=== PATIENT | male | born 1975 ===

== ENCOUNTER 2016-08-08 13:21 | Emergency (ER) | payer OTHER ==
--- NOTE | 2016-08-08 14:51 | EDDOCDS ---
Nurse's Notes [facility] Name: Amador Dick Age: 40 yrs Sex: Male : 1975 Arrival Date: 08/08/2016 Time: 13:21 Bed I9 Private MD: NO PRIMARY PHYSICIAN, . Diagnosis: Malaise and fatigue;Contact urticaria Presentation: 08/08 13:30 Presenting complaint: Patient states: dental abscess/L upper abdominal rash for a week. rs3 rash getting worse raised, itchy and painful. shivering and malaise last night. Onset: The symptoms/episode began/occurred gradually. This patient has not experienced a previous allergic reaction. Anaphylaxis evaluation, the patient reports or I have noted the following symptoms which indicate a significant risk of anaphylaxis: no signs or symptoms of anaphylaxis were noted. Adult Sepsis Screening: The patient does not have new or worsening altered mentation. Patient's respiratory rate is less than 22. Systolic blood pressure is greater than 100. Patient has a qSOFA score of 0- Negative Sepsis Screen. Suicide/Homicide risk assessment- the patient denies having any suicidal and/or homicidal ideations and does not present with any other emotional, behavioral or mental health complaints. Status: Patient is not a job service specialist or dependent. Transition of care: patient was not received from another setting of care. 13:30 Acuity: LILO Level 4 rs3 13:30 Method Of Arrival: Walkin/Carried/Asstd rs3 Triage Assessment: 13:34 General: Appears in no apparent distress. Pain: Location: left upper quadrant. Pt rs3 Declines HIV testing. Respiratory: Reports no respiratory complaints. Historical: - Allergies: PENICILLINS (Hives); - Home Meds: 1. none - PMHx: none; - PSHx: none; - Social history: Smoking status: Patient uses tobacco products, heavy tobacco smoker. No barriers to communication noted. - Family history: Not pertinent. - : The pt / caregiver states he / she is not on anticoagulants. Home medication list is obtained from the patient. - Exposure Risk Screening:: None identified. Screenin:03 Screening information is obtained from the patient. Fall risk: No risks identified. jjr Assistance ADL's: requires no assistance with activities of daily living. Abuse/DV Screen: The patient / caregiver reports he/she is: not in a situation that causes fear, pain or injury. Nutritional screening: No deficits noted. Advance Directives: There is no active DNR order. home support is adequate. Assessment: 14:02 General: Appears in no apparent distress, reports rash to upper abdomen for past week jjr now with more red circular spots, rash towards epigastric region with scabs, pt reports itching and numbness to region, also concerned about chills last night. Respiratory: Airway is patent Respiratory effort is even, unlabored, Respiratory pattern is regular, Breath sounds are clear bilaterally. Vital Signs: 13:23 BP 144 / 84; Pulse 89; Resp 18 S; Temp 97.9(O); Pulse Ox 96% on R/A; Weight 79.38 kg dd6 (R); Height 5 ft. 8 in. (172.72 cm) (R); 14:44 BP 137 / 77; Pulse 59; Resp 16; Temp 97.8; Pulse Ox 96% ; Pain 0/10; jlf 13:23 Body Mass Index 26.61 (79.38 kg, 172.72 cm) dd6 Vitals: 13:23 Log In Time: August 08, 2016 at 13:21. dd6 ED Course: 13:22 Patient visited by Dewayne Ambrosio PCA. dd6 13:22 Patient moved to Waiting dd6 13:23 NO PRIMARY PHYSICIAN, . is Private Physician. dd6 13:25 Patient moved to Pre RCE dd6 13:33 Triage Initiated rs3 13:57 Patient moved to I9 / 22 jjr 14:03 Patient visited by Elif Calderon RN. jjr 14:03 The patient / caregiver is instructed regarding the plan of care and ED course. jjr 14:19 [facility]. ke 14:19 Patient visited by Sony Winslow FNP. ke 14:19 Patient visited by Sony Winslow FNP. ke 14:34 [facility] is Referral Physician. ke 14:44 Patient visited by Jamila Humphries PCA. jlf 14:49 No IV's were initiated during this patient's visit. No procedures done that require dls assistance. Order Results: There are currently no results for this order. Outcome: 14:36 Discharge ordered by Provider. ke 14:48 Discharge Assessment: Patient awake, alert and oriented x 3. No cognitive and/or dls functional deficits noted. Patient verbalized understanding of disposition instructions. patient administered narcotics - no. The following High Risk Discharge criteria are identified: None. Discharged to home ambulatory. Condition: stable. Discharge instructions given to patient, Instructed on discharge instructions, follow up and referral plans. medication usage, Demonstrated understanding of instructions, medications, Pt was receptive of discharge instructions/ teaching. No special radiology studies were completed. Property sent home with patient. 14:50 Patient left the ED. dls Signatures: Kourtney Tran, RN RN dls Sony Winslow, ABSTRACTOR ABSTRACTOR Elif Dinero, RN RN Dewayne Sims, MARKETING ACCOUNT MANAGER MARKETING ACCOUNT MANAGER dd6 Bee HernandesRN RN rs3 Jamila Humphries, MARKETING ACCOUNT MANAGER MARKETING ACCOUNT MANAGER jlf MIKAYLA
--- NOTE | 2016-08-08 14:51 | EDDOCDS ---
Physician Documentation [facility] Name: Amador Dick Age: 40 yrs Sex: Male : 1975 Arrival Date: 08/08/2016 Time: 13:21 Bed I9 Private MD: NO PRIMARY PHYSICIAN, . Disposition: 08/08/16 14:36 Discharged to Home/Self Care. Impression: Malaise and fatigue, Contact urticaria. - Condition is Stable. - Discharge Instructions: Contact Dermatitis, Fatigue. - Prescriptions for Zyrtec 10 mg Oral Tablet - take 1 tablet by ORAL route once daily As needed; 20 tablet. - Medication Reconciliation, Local Pharmacy Hours form. - [facility]: [facility]; When: Call to arrange an appointment; Reason: Continuance of care. - Problem is an ongoing problem. - Symptoms are unchanged. Historical: - Allergies: PENICILLINS (Hives); - Home Meds: 1. none - PMHx: none; - PSHx: none; - Social history: Smoking status: Patient uses tobacco products, heavy tobacco smoker. No barriers to communication noted. - Family history: Not pertinent. - : The pt / caregiver states he / she is not on anticoagulants. Home medication list is obtained from the patient. - Exposure Risk Screening:: None identified. Vital Signs: 08/08 13:23 BP 144 / 84; Pulse 89; Resp 18 S; Temp 97.9(O); Pulse Ox 96% on R/A; Weight 79.38 kg / dd6 175 lbs (R); Height 5 ft. 8 in. (172.72 cm) (R); 14:44 BP 137 / 77; Pulse 59; Resp 16; Temp 97.8; Pulse Ox 96% ; Pain 0/10; jlf 13:23 Body Mass Index 26.61 (79.38 kg, 172.72 cm) dd6 Signatures: Kourtney Tran RN Sony Odonnell, MECHANICAL ASSEMBLY MECHANICAL ASSEMBLY Bee Townsend RN RN rs3 MTDD
--- NOTE | 2016-08-10 15:51 | EDDOCDS ---
Nurse's Notes [facility] Name: Amador Dick Age: 40 yrs Sex: Male : 1975 Arrival Date: 08/08/2016 Time: 13:21 Bed I9 Private MD: NO PRIMARY PHYSICIAN, . Diagnosis: Malaise and fatigue;Contact urticaria Presentation: 08/08 13:30 Presenting complaint: Patient states: dental abscess/L upper abdominal rash for a week. rs3 rash getting worse raised, itchy and painful. shivering and malaise last night. Onset: The symptoms/episode began/occurred gradually. This patient has not experienced a previous allergic reaction. Anaphylaxis evaluation, the patient reports or I have noted the following symptoms which indicate a significant risk of anaphylaxis: no signs or symptoms of anaphylaxis were noted. Adult Sepsis Screening: The patient does not have new or worsening altered mentation. Patient's respiratory rate is less than 22. Systolic blood pressure is greater than 100. Patient has a qSOFA score of 0- Negative Sepsis Screen. Suicide/Homicide risk assessment- the patient denies having any suicidal and/or homicidal ideations and does not present with any other emotional, behavioral or mental health complaints. 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 Transition of care: patient was not received from another setting of care. 13:30 Acuity: LILO Level 4 rs3 13:30 Method Of Arrival: Walkin/Carried/Asstd rs3 Triage Assessment: 13:34 General: Appears in no apparent distress. Pain: Location: left upper quadrant. Pt rs3 Declines HIV testing. Respiratory: Reports no respiratory complaints. Historical: - Allergies: PENICILLINS (Hives); - Home Meds: 1. none - PMHx: none; - PSHx: none; - Social history: Smoking status: Patient uses tobacco products, heavy tobacco smoker. No barriers to communication noted. - Family history: Not pertinent. - : The pt / caregiver states he / she is not on anticoagulants. Home medication list is obtained from the patient. - Exposure Risk Screening:: None identified. Screenin:03 Screening information is obtained from the patient. Fall risk: No risks identified. jjr Assistance ADL's: requires no assistance with activities of daily living. Abuse/DV Screen: The patient / caregiver reports he/she is: not in a situation that causes fear, pain or injury. Nutritional screening: No deficits noted. Advance Directives: There is no active DNR order. home support is adequate. Assessment: 14:02 General: Appears in no apparent distress, reports rash to upper abdomen for past week jjr now with more red circular spots, rash towards epigastric region with scabs, pt reports itching and numbness to region, also concerned about chills last night. Respiratory: Airway is patent Respiratory effort is even, unlabored, Respiratory pattern is regular, Breath sounds are clear bilaterally. Vital Signs: 13:23 BP 144 / 84; Pulse 89; Resp 18 S; Temp 97.9(O); Pulse Ox 96% on R/A; Weight 79.38 kg dd6 (R); Height 5 ft. 8 in. (172.72 cm) (R); 14:44 BP 137 / 77; Pulse 59; Resp 16; Temp 97.8; Pulse Ox 96% ; Pain 0/10; jlf 13:23 Body Mass Index 26.61 (79.38 kg, 172.72 cm) dd6 Vitals: 13:23 Log In Time: August 08, 2016 at 13:21. dd6 ED Course: 13:22 Patient visited by Dewayne Ambrosio PCA. dd6 13:22 Patient moved to Waiting dd6 13:23 NO PRIMARY PHYSICIAN, . is Private Physician. dd6 13:25 Patient moved to Pre RCE dd6 13:33 Triage Initiated rs3 13:57 Patient moved to I9 / 22 jjr 14:03 Patient visited by Elif Calderon RN. jjr 14:03 The patient / caregiver is instructed regarding the plan of care and ED course. jjr 14:19 Sony Winslow FNP is PHCP. ke 14:19 Patient visited by Sony Winslow FNP. ke 14:19 Patient visited by Sony Winslow FNP. ke 14:34 [facility] is Referral Physician. ke 14:44 Patient visited by Jamila Humphries PCA. jlf 14:49 No IV's were initiated during this patient's visit. No procedures done that require dls assistance. 22:00 T-Sheet-- Draft Copy was scanned into [employer] and attached to record. klr Order Results: There are currently no results for this order. Outcome: 14:36 Discharge ordered by Provider. ke 14:48 Discharge Assessment: Patient awake, alert and oriented x 3. No cognitive and/or dls functional deficits noted. Patient verbalized understanding of disposition instructions. patient administered narcotics - no. The following High Risk Discharge criteria are identified: None. Discharged to home ambulatory. Condition: stable. Discharge instructions given to patient, Instructed on discharge instructions, follow up and referral plans. medication usage, Demonstrated understanding of instructions, medications, Pt was receptive of discharge instructions/ teaching. No special radiology studies were completed. Property sent home with patient. 14:50 Patient left the ED. dls Signatures: Kourtney Tran, RN RN dls Sony Winslow, SALES & SERVICE ASSOCIATE SALES & SERVICE ASSOCIATE Elif Dinero, RN RN Dewayne Sims, CRYSTAL LAPPER CRYSTAL LAPPER dd6 Bee Hernandes,RN RN rs3 Jamila Humphries, CRYSTAL LAPPER CRYSTAL LAPPER jlf Stephanie Gonsalves Chart Complete MTDSanju
--- NOTE | 2016-08-10 15:51 | EDDOCDS ---
Physician Documentation [facility] Name: Amador Dick Age: 40 yrs Sex: Male : 1975 Arrival Date: 08/08/2016 Time: 13:21 Bed I9 Private MD: NO PRIMARY PHYSICIAN, . Disposition: 08/08/16 14:36 Discharged to Home/Self Care. Impression: Malaise and fatigue, Contact urticaria. - Condition is Stable. - Discharge Instructions: Contact Dermatitis, Fatigue. - Prescriptions for Zyrtec 10 mg Oral Tablet - take 1 tablet by ORAL route once daily As needed; 20 tablet. - Medication Reconciliation, Local Pharmacy Hours form. - [facility] up: [facility]; When: Call to arrange an appointment; Reason: Continuance of care. - Problem is an ongoing problem. - Symptoms are unchanged. Historical: - Allergies: PENICILLINS (Hives); - Home Meds: 1. none - PMHx: none; - PSHx: none; - Social history: Smoking status: Patient uses tobacco products, heavy tobacco smoker. No barriers to communication noted. - Family history: Not pertinent. - : The pt / caregiver states he / she is not on anticoagulants. Home medication list is obtained from the patient. - Exposure Risk Screening:: None identified. Vital Signs: 08/08 13:23 BP 144 / 84; Pulse 89; Resp 18 S; Temp 97.9(O); Pulse Ox 96% on R/A; Weight 79.38 kg / dd6 175 lbs (R); Height 5 ft. 8 in. (172.72 cm) (R); 14:44 BP 137 / 77; Pulse 59; Resp 16; Temp 97.8; Pulse Ox 96% ; Pain 0/10; jlf 13:23 Body Mass Index 26.61 (79.38 kg, 172.72 cm) dd6 MDM: 22:00 T-Sheet-- Draft Copy was scanned into [employer] and attached to record. klr Signatures: Kourtney Tran RN RN dls Elsner, Karl, ELECTRONICS INSPECTOR Bee Siu RN RN rs3 Stephanie Gonsalves The chart was reviewed and I authenticate all verbal orders and agree with the evaluation and treatment provided.Attachments: 22:00 T-Sheet-- Draft Copy klpatricia Chart Complete MTDD
--- NOTE | 2016-08-10 15:51 | EDDOCDS ---
Physician Documentation [facility] Name: Amador Dick Age: 40 yrs Sex: Male : 1975 Arrival Date: 08/08/2016 Time: 13:21 Bed I9 Private MD: NO PRIMARY PHYSICIAN, . Disposition: 08/08/16 14:36 Discharged to Home/Self Care. Impression: Malaise and fatigue, Contact urticaria. - Condition is Stable. - Discharge Instructions: Contact Dermatitis, Fatigue. - Prescriptions for Zyrtec 10 mg Oral Tablet - take 1 tablet by ORAL route once daily As needed; 20 tablet. - Medication Reconciliation, Local Pharmacy Hours form. - Follow up: [facility]; When: Call to arrange an appointment; Reason: Continuance of care. - Problem is an ongoing problem. - Symptoms are unchanged. Historical: - Allergies: PENICILLINS (Hives); - Home Meds: 1. none - PMHx: none; - PSHx: none; - Social history: Smoking status: Patient uses tobacco products, heavy tobacco smoker. No barriers to communication noted. - Family history: Not pertinent. - : The pt / caregiver states he / she is not on anticoagulants. Home medication list is obtained from the patient. - Exposure Risk Screening:: None identified. Vital Signs: 08/08 13:23 BP 144 / 84; Pulse 89; Resp 18 S; Temp 97.9(O); Pulse Ox 96% on R/A; Weight 79.38 kg / dd6 175 lbs (R); Height 5 ft. 8 in. (172.72 cm) (R); 14:44 BP 137 / 77; Pulse 59; Resp 16; Temp 97.8; Pulse Ox 96% ; Pain 0/10; jlf 13:23 Body Mass Index 26.61 (79.38 kg, 172.72 cm) dd6 MDM: 22:00 T-Sheet-- Draft Copy was scanned into [employer]. and attached to record. klr Signatures: Kourtney Tran RN RN dls Elsner, Karl, MATE FOURTH Bee Siu RN RN rs3 Stephanie Gonsalves The chart was reviewed and I authenticate all verbal orders and agree with the evaluation and treatment provided.Attachments: 22:00 T-Sheet-- Draft Copy klpatricia Chart Complete MTDD
== END 2016-08-08 14:50 | disposition home or self-care (01) ==
LOC: M ED 13:21
DX: L50.6 Contact urticaria (principal); R53.81 Other malaise; R53.83 Other fatigue; Z88.0 Allergy status to penicillin; F17.210 Nicotine dependence, cigarettes, uncomplicated